=== PATIENT | male | born 1955 | race Caucasian/White ===

== ENCOUNTER 2018-09-28 06:02 | Day surgery (SDC) | payer MEDICARE, OTHER ==
[~2018-09-28 06:02] MED LIST: ALLERGY RELIEF180 M1; BISACODYL LAXAT10 MG PR; CYCLOBENZAPR5 MG PO; DICLOFENAC75 MG PO; DOCU SOFT100 MG PO; ENALAPRIL5 MG PO; ENEMA READY-TO-1 ENE; EQL ACETAMINOP325 MG; FOLIC ACID400 MC1 PO; GABAPENTIN400 M2 PO; GLUCOSE15 GM/33 G; HYDROCODONE/ACE1 TAB PO; KP MELATONIN3 MG PO; LEVETIRACETAM1000 MG PO; LIPITOR80 M1 PO; METFORMIN500 MG PO; METOPROL TAR25 MG PO; MILK OF MAGNESI1 SUS; NARCAN4 MG/0.1 M; OXYCODONE10 M1 PO; RANITIDINE150 M1 PO; ROBAFEN100 MG/51 PO; TAMSULOSIN HCL0.4 MG PO; TRAZODONE100 MG PO; VITAMIN B-121000 MCG PO; VITAMIN D32000 UNI2; WARFARIN1 MG PO; WARFARIN3 MG PO; ZESTRIL10 M1 PO
[2018-09-28 09:19] VITALS: BP 150/70
[2018-09-28] MEDS ORDERED: PERCOCET1 TA4 PO (09:54)
[2018-10-06] MEDS ORDERED: PERCOCET1 TA4 PO (10:24)
[2018-10-06] MEDS ORDERED: VOLTAREN1%GEL TOP (10:27)
== END 2018-09-28 10:00 | disposition other institution (70) ==
LOC: ORM 06:02
PROVIDERS: ATTEND Anesthesiology Pain Medicine
PROC: 3E0T3BZ Introduction of Anesthetic Agent into Peripheral Nerves and Plexi, Percutaneous Approach (ICD-10-PCS; principal; 2018-09-28)
PROC: 3E0T33Z Introduction of Anti-inflammatory into Peripheral Nerves and Plexi, Percutaneous Approach (ICD-10-PCS; 2018-09-28)
PROC: BR161ZZ Fluoroscopy of Lumbar Facet Joint(s) using Low Osmolar Contrast (ICD-10-PCS; 2018-09-28)
PROC: 3E0T3BZ Introduction of Anesthetic Agent into Peripheral Nerves and Plexi, Percutaneous Approach (ICD-10-PCS; 2018-09-28)
PROC: 3E0T33Z Introduction of Anti-inflammatory into Peripheral Nerves and Plexi, Percutaneous Approach (ICD-10-PCS; 2018-09-28)
DX: M54.5 Low back pain (principal); M12.9 Arthropathy, unspecified

== ENCOUNTER → 2018-11-29 | Outpatient (REF) | payer MEDICARE, MEDICAID ==
[~2018-11-29] MED LIST changes: +DOXEPIN HCL10 MG PO; +MIRALAX3350 NF PO; +PERCOCET1 TA4 PO; +VOLTAREN1%GEL TOP; +ZOFRAN4 MG PO
[2018-11-29 11:22] LABS: BARBITURATES NEGATIVE (NEGATIVE); COCAINE NEGATIVE (NEGATIVE); METHADONE NEGATIVE (NEGATIVE); OXCYCODONE POSITIVE (NEGATIVE); TETRAHYDROCANNABIONOL NEGATIVE (NEGATIVE); TRICYLIC ANTIDEPRESSANTS POSITIVE (NEGATIVE)
[2018-11-29 11:28] VITALS: BP 156/78
== END | disposition home or self-care (01) ==
LOC: PAIN/MGT 10:30
PROVIDERS: ATTEND Anesthesiology Pain Medicine
DX: Z51.81 Encounter for therapeutic drug level monitoring (principal); Z79.891 Long term (current) use of opiate analgesic